=== PATIENT | female | born 1970 | race Hispanic/Latino ===

== ENCOUNTER 2017-02-14 06:24 | Day surgery (SDC) | payer BC ==
[2017-02-06 09:03] VITALS: BMI 46.5
[2017-02-14] MEDS ORDERED: Midazolam 2 MG/2 ML VIAL ONE (07:44)
[2017-02-14] MEDS ORDERED: Propofol 10 mg/ml Inj (20 ML) ONE (07:44)
[2017-02-14] MEDS ORDERED: Succinylcholine Chloride 20 mg/ml Syr (5 ml) IV ONE ×2 (07:46→07:51)
[2017-02-14] MEDS ORDERED: Lactated Ringer's 1,000 ML IV ONE (08:35)
[2017-02-14] MEDS ORDERED: HYDROmorphone 0.5 mg/0.5 ml ISec IVP PRN (09:25)
--- NOTE | 2017-02-14 09:53 | PCM.SURG1 ---
Surgeon's Initial Post Op Note - Surgeon's Notes Surgeon: Tamiko Salgado MD Software Validation Technician: none Type of Anesthesia: General LMA Pre-Operative Diagnosis: Abnormal uterine bleeding, pelvic pain Operative Findings: anterverted uteurs 8 weeks size, mobile, no adnexal masses, bilaterla ostia visulailzed, thickened white prolieratye type endometrium,no masses. endometrial ablation perfored 76 seconds cervicla lenght 3, width 3.7cm , cavity leght 5cm, no complicatins Post-Operative Diagnosis: same as above Operation Performed: Operative hysteroscopy, fractional dilation and currettage , endometrial ablation Specimen/Specimens Removed: endocervical currettings, endometrial currettings Estimated Blood Loss: EBL {In ML}: 5 Blood Products Given: N/A Drains Used: No Drains Post-Op Condition: Good Date of Surgery/Procedure: 02/14/17 Time of Surgery/Procedure: 09:00
[2017-02-14 10:44] VITALS: RESP 18
--- NOTE | 2017-02-14 14:09 | OP ---
PROCEDURE DATE: 02/14/2017 PREOPERATIVE DIAGNOSES: Abnormal uterine bleeding and pelvic pain. POSTOPERATIVE DIAGNOSES: Abnormal uterine bleeding and pelvic pain. PROCEDURES PERFORMED: Operative hysteroscopy, proximal dilation and curettage, and endometrial ablation. SURGEON: Tamiko Salgado MD GROCERY BUYER: None. TYPE OF ANESTHESIA: General LMA. OPERATIVE FINDINGS: Anteverted uterus of 8-week size, mobile, no adnexal mass, bilateral ostia visualized, thickened white proliferative type endometrium. No masses. Endometrial ablation performed for 76 seconds, cervical length 3 cm, width 3.7 cm, cavity length 5 cm. ESTIMATED BLOOD LOSS: 5 mL. BLOOD PRODUCTS: None. COMPLICATIONS: None. SPECIMENS: Endocervical curettings and endometrial curettings. DESCRIPTION OF PROCEDURE: The patient was taken to the operating room, where she was given general anesthesia. Once found to be adequate, she was positioned on the operating table in the dorsal supine position with legs supported using stirrups. The patient was then prepped and draped in the usual sterile fashion. A time-out confirmed correct patient and correct procedure. A bimanual exam was performed with the above-mentioned findings and a red rubber catheter was inserted into the urethra to drain the bladder, which was 30 mL of clear yellow urine. Thin retractor was placed in the anterior and posterior fornix of the vagina and the cervix was adequately visualized. Single tooth tenaculum was placed in the anterior lip of the cervix and endocervix curettings were obtained with a Kevorkian curette and sent to pathology on [facility]. The uterus was then sounded to 8 cm and the cervix was sequentially dilated to allow for introduction of the hysteroscopy under visualization using normal saline as a distention media. There was bilateral ostia visualized and a thickened white endometrium. No gross masses noted. Following this, hysteroscope was then removed and a gentle curettage was done. The specimen was sent to pathology and labeled as endometrial curetting. Following this, the NovaSure device was then inserted with the appropriate length and width of the uterine assessment and the cavity initially underwent an assessment test, which was then passed. Following this, NovaSure device was then activated as per the operations program manager instructions, a total ablation of [address]. Once the ablation was complete, the NovaSure device was then carefully removed and hysteroscope was then reinserted and there was good ablation noted throughout the right cavity. There was good hemostasis noted at the tenaculum puncture site. All instruments were removed. Good hemostasis was noted. At the end of the procedure, all needle, sponge, and instrument counts were noted correct x2. The patient tolerated the procedure well and was transferred to the recovery room in stable condition. Tamiko Salgado MD
[2017-02-14 14:48] VITALS: BP 112/70; PULSE 63; TEMP 98; O2SAT 100
== END 2017-02-14 11:50 | disposition home or self-care (01) ==
LOC: C.SDS 06:24 → EDSTATUS 07:45 → C.SDS 11:50
PROVIDERS: ATTEND Obstetrics & Gynecology
DX: N93.9 Abnormal uterine and vaginal bleeding, unspecified (principal); R93.8 Abnormal findings on diagnostic imaging of other specified body structures; R10.2 Pelvic and perineal pain; N94.89 Other specified conditions associated with female genital organs and menstrual cycle
CPT/HCPCS: 58563; 88305; J1100; J2001; J2250; J2405; J2704; J3010; J7120